=== PATIENT | female | born 1980 | race Caucasian/White ===

== ENCOUNTER 2017-02-02 13:31 | Emergency (ER) | payer OTHER ==
[2017-02-02 13:38] VITALS: BP 157/64; PULSE 83; RESP 18; TEMP 97.4
--- NOTE | 2017-02-02 14:19 | XR ---
EXAMINATION TYPE: XR thoracic spine 2V DATE OF EXAM: 02/02/2017 CLINICAL HISTORY: pain TECHNIQUE: Frontal, lateral, and swimmer's view of thoracic spine are obtained. COMPARISON: None. FINDINGS: Thoracic spine show satisfactory alignment without evidence of acute fracture or dislocatio n. Vertebral body heights are preserved. Disc spaces are well preserved. Visualized ribs are unrem arkable. IMPRESSION: No acute fracture or dislocation is seen in the thoracic spine. ICD 10 NO FRACTURE, INIT IAL EVALUATION
--- NOTE | 2017-02-02 14:20 | XR ---
EXAMINATION TYPE: XR lumbar spine 2 or 3V DATE OF EXAM: 02/02/2017 CLINICAL HISTORY: pain TECHNIQUE: Three views of the lumbar spine are submitted. COMPARISON: None. FINDINGS: There are 5 lumbar type vertebral bodies identified. The lumbar spine shows satisfactory alignment w ithout evidence of acute fracture or dislocation. Vertebral body heights are within normal limits. Disc spaces are within normal limits. The overlying soft tissue appears unremarkable. IMPRESSION: No acute fracture or dislocation is seen in the lumbar spine. ICD 10 NO FRACTURE, INITIAL EVALUATION
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
== END 2017-02-02 14:25 | disposition home or self-care (01) ==
LOC: EC 13:31
DX: S30.0XXD Contusion of lower back and pelvis, subsequent encounter (principal); S46.912D Strain of unspecified muscle, fascia and tendon at shoulder and upper arm level, left arm, subsequent encounter; R20.0 Anesthesia of skin; F17.200 Nicotine dependence, unspecified, uncomplicated; Z88.0 Allergy status to penicillin; Z88.5 Allergy status to narcotic agent; W20.8XXD Other cause of strike by thrown, projected or falling object, subsequent encounter; Y92.69 Other specified industrial and construction area as the place of occurrence of the external cause; Y99.0 Civilian activity done for income or pay
CPT/HCPCS: 72070; 72100; 99283

== ENCOUNTER → 2017-02-23 | Outpatient (CLI) | payer OTHER ==
--- NOTE | 2017-02-23 21:55 | MR ---
EXAMINATION TYPE: MR lumbar spine wo con DATE OF EXAM: 02/23/2017 COMPARISON: NONE HISTORY: Low back pain from injury at work 01/2017 TECHNIQUE: T1 and T2 axial and sagittal images of the lumbar spine are submitted. FINDINGS: There is no abnormal signal seen within the visualized spinal cord or paraspinal soft tissu es. At L1-2 there is no disc herniation or canal stenosis. No degenerative disc disease. No foraminal enc roachment. At L2-3 there isno disc herniation or canal stenosis. No degenerative disc disease. No foraminal encr oachment. At L3-4 there is no disc herniation or canal stenosis. No degenerative disc disease. No foraminal enc roachment. Mild hypertrophic change of the facets. At L4-5 there is no disc herniation or canal stenosis. No degenerative disc disease. No foraminal enc roachment. Mild hypertrophic change of the facets. At L5-S1 there is no disc herniation or canal stenosis. No degenerative disc disease. No foraminal en croachment. Mild hypertrophic change of the facets. Vertebral hemangioma S1. IMPRESSION: 1. Multilevel mild facet arthropathy.
== END | disposition home or self-care (01) ==
LOC: RADMRIMAIN 21:10
PROVIDERS: ATTEND Emergency Medicine
DX: M46.96 Unspecified inflammatory spondylopathy, lumbar region (principal)
CPT/HCPCS: 72148

== ENCOUNTER 2018-04-29 20:31 | Emergency (ER) | payer OTHER ==
[2018-04-29 20:50] VITALS: RESP 18
--- NOTE | 2018-04-29 23:06 | XR ---
EXAMINATION TYPE: XR hand complete RT DATE OF EXAM: 04/29/2018 COMPARISON: NONE HISTORY: Pain TECHNIQUE: 3 views FINDINGS: Metacarpals appear intact. I see no fracture nor dislocation. There are no erosions. IMPRESSION: Negative right hand exam.
--- NOTE | 2018-04-29 23:20 | XR ---
EXAMINATION TYPE: XR forearm RT DATE OF EXAM: 04/29/2018 COMPARISON: NONE HISTORY: Pain TECHNIQUE: 2 views FINDINGS: Radius and ulna appear intact. I see no fracture nor dislocation. There is no sign of elbow joint effusion. IMPRESSION: Normal right forearm exam
--- NOTE | 2018-04-29 23:21 | XR ---
EXAMINATION TYPE: XR elbow complete RT DATE OF EXAM: 04/29/2018 COMPARISON: NONE HISTORY: Pain TECHNIQUE: 3 views FINDINGS: I see no fracture nor dislocation. Elbow joint spaces appear normal. There are no pathologi c calcifications. There is no sign of elbow joint effusion. IMPRESSION: Normal right elbow.
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
[2018-04-29 23:55] VITALS: BP 140/78; PULSE 84; TEMP 98.2
== END 2018-04-29 23:53 | disposition home or self-care (01) ==
LOC: EC 20:31
DX: M25.521 Pain in right elbow (principal); F17.200 Nicotine dependence, unspecified, uncomplicated; Z88.0 Allergy status to penicillin; Z88.5 Allergy status to narcotic agent
CPT/HCPCS: 99283